=== PATIENT | male | born 1965 | race African-American/Black ===

== ENCOUNTER 2020-02-20 19:43 | Emergency (ER) | payer OTHER ==
[~2020-02-20] VITALS: Ht 175.3 cm; Wt 81.6 kg
== END 2020-02-20 22:00 | disposition home or self-care (01) ==
LOC: ER 19:43
DX: S43.084A Other dislocation of right shoulder joint, initial encounter (principal); W18.39XA Other fall on same level, initial encounter; Y93.89 Activity, other specified; Y92.89 Other specified places as the place of occurrence of the external cause; Y99.8 Other external cause status

== ENCOUNTER 2020-02-22 08:54 | Emergency (ER) | payer OTHER ==
[~2020-02-22] VITALS: Ht 177.8 cm; Wt 86.2 kg
== END 2020-02-22 10:20 | disposition home or self-care (01) ==
LOC: ER 08:54
DX: M24.411 Recurrent dislocation, right shoulder (principal)

== ENCOUNTER 2020-02-23 08:18 | Outpatient (CLI) | payer OTHER | END 2020-02-23 08:59 | disposition home or self-care (01) | LOC: MRI 08:18 | DX: S43.084A Other dislocation of right shoulder joint, initial encounter (principal) | CPT/HCPCS: 73219 ==